=== PATIENT | female | born 1955 | race Caucasian/White ===

== ENCOUNTER → 2018-08-03 | Outpatient (CLI) | payer OTHER ==
[~2018-08-03] MED LIST: [UNRECOGNIZED DRUG - REMARK]
== END ==
LOC: SURG 10:24
PROVIDERS: ATTEND Anesthesiology Pain Medicine
DX: M25.551 Pain in right hip (principal); M25.552 Pain in left hip; E66.9 Obesity, unspecified; F11.90 Opioid use, unspecified, uncomplicated; G89.4 Chronic pain syndrome; I10 Essential (primary) hypertension; E11.9 Type 2 diabetes mellitus without complications; Z79.899 Other long term (current) drug therapy
CPT/HCPCS: 99214

== ENCOUNTER → 2018-10-05 | Outpatient (CLI) | payer OTHER ==
[~2018-10-05] MED LIST changes: +0.9 % SODIUM CHLORIDE 10 ML VIAL ONE; +LIDOCAINE 1% PF 30 ML VIAL. ONE; +MIDAZOLAM HCL PF 2 MG/2 ML VIAL. ONE; +methylPREDNISolone ACETATE 80 MG/ML VIAL. ONE
== END | disposition home or self-care (01) ==
LOC: SURG 08:17
PROVIDERS: ATTEND Anesthesiology Pain Medicine
DX: M54.16 Radiculopathy, lumbar region (principal); E11.9 Type 2 diabetes mellitus without complications; J30.2 Other seasonal allergic rhinitis; G47.30 Sleep apnea, unspecified; I49.9 Cardiac arrhythmia, unspecified; Z95.5 Presence of coronary angioplasty implant and graft; Z79.82 Long term (current) use of aspirin; Z79.899 Other long term (current) drug therapy; Z79.84 Long term (current) use of oral hypoglycemic drugs
CPT/HCPCS: 62323; 82947; J1040; J2001; J2250; J3010; 99152

== ENCOUNTER → 2018-11-09 | Outpatient (CLI) | payer OTHER ==
[~2018-11-09] MED LIST changes: +IOHEXOL 300 MG/ML 50 ML VIAL. ONE
== END | disposition home or self-care (01) ==
LOC: SURG 11:29
PROVIDERS: ATTEND Anesthesiology Pain Medicine
DX: M47.26 Other spondylosis with radiculopathy, lumbar region (principal); I10 Essential (primary) hypertension; E11.9 Type 2 diabetes mellitus without complications; Z79.899 Other long term (current) drug therapy; Z79.01 Long term (current) use of anticoagulants; Z79.84 Long term (current) use of oral hypoglycemic drugs; Z79.82 Long term (current) use of aspirin; G47.30 Sleep apnea, unspecified; F17.210 Nicotine dependence, cigarettes, uncomplicated; Z72.89 Other problems related to lifestyle; I25.2 Old myocardial infarction; Z95.1 Presence of aortocoronary bypass graft; K21.9 Gastro-esophageal reflux disease without esophagitis; Z95.5 Presence of coronary angioplasty implant and graft; Z98.890 Other specified postprocedural states
CPT/HCPCS: 62323; 82947; 99152; J1040; J2001; J2250; Q9967; J3010

== ENCOUNTER 2021-12-09 15:28 | Emergency (ER) | payer MEDICARE, OTHER ==
[~2021-12-09] VITALS: Ht 182.9 cm; Wt 143.1 kg
[~2021-12-09 15:28] MED LIST changes: -0.9 % SODIUM CHLORIDE 10 ML VIAL ONE; -IOHEXOL 300 MG/ML 50 ML VIAL. ONE; -LIDOCAINE 1% PF 30 ML VIAL. ONE; -MIDAZOLAM HCL PF 2 MG/2 ML VIAL. ONE; -methylPREDNISolone ACETATE 80 MG/ML VIAL. ONE
[2021-12-09] MEDS ORDERED: tiZANidine 4 MG TABLET. PO ONE (16:15)
[2021-12-09] MEDS ORDERED: TIZA4TAB8 PO (16:17)
--- NOTE | 2021-12-09 16:17 | PHYS DOC ---
Past History Past Medical History: Angina, Depression, Heart Disease, Hypertension, VA, Other Additional Past Medical Histor: mitral valve prolapse; chronic back pain; obese; irregular heart rythym Past Surgical History: Other Additional Past Surgical Histo: bunionectomy Smoking: Less than 1pk/day Alcohol Use: None Drug Use: None General Adult EDM: Chief Complaint: LOWER EXT PAIN HPI: HPI: Patient is a 66-year-old female that presents today with right hip right leg pain. Patient states that she laid down around 130 today because her right leg was bothering her, and she called her primary care doctor's office after she woke up today and was concerned with a blood clot. Patient has a past medical history of lower back pain for which she sees a pain management physician and is currently having treatment with epidural steroid injections for her back pain, she also takes Percocet tens and Flexeril for her pain. Patient is also currently having a work-up with cardiology at [facility] for mitral valve prolapse, she is currently on Eliquis 5 mg twice daily for this as well. Patient denies trauma or fall. Patient states she was supposed to be seen yesterday at her pain management doctor and canceled the appointment due to her having a CALIN tomorrow, she was concerned that she would contract Covid and would not have a negative Covid test. Patient states her last MRI was in 2018, she was instructed to lose weight, stop smoking, and get her hemoglobin A1c below 7 before they would do any treatment of her back, she has not lost weight which has keeping her from having any surgery. Review of Systems: Review of Systems: Constitutional: Denies fever or chills Eyes: Denies change in visual acuity HENT: Denies nasal congestion or sore throat Respiratory: Denies cough or shortness of breath Cardiovascular: Denies chest pain or edema GI: Denies abdominal pain, nausea, vomiting, bloody stools or diarrhea : Denies dysuria Musculoskeletal: Low back right hip right leg pain Integument: Denies rash Neurologic: Denies headache, focal weakness or sensory changes Endocrine: Denies polyuria or polydipsia Lymphatic: Denies swollen glands Psychiatric: Denies depression or anxiety Current Medications: Current Meds: Current Medications Medications (Trade) Dose Ordered Sig/Rd Start Time Stop Time Status Last Admin Dose Admin Tizanidine HCl (Zanaflex) 4 mg 1X ONCE 12/09/21 16:15 12/09/21 16:16 UNV Allergies: Allergies: Allergies Coded Allergies Type Severity Reaction Last Updated Verified No Known Drug Allergies 10/18/13 No Physical Exam: PE: Constitutional: Well developed, well nourished, no acute distress, non-toxic appearance. [] HENT: Normocephalic, atraumatic, bilateral external ears normal, oropharynx moist, no oral exudates, nose normal. [] Eyes: PERRLA, EOMI, conjunctiva normal, no discharge. [] Neck: Normal range of motion, no tenderness, supple, no stridor. [] Cardiovascular:Heart rate regular rhythm, no murmur [] Lungs & Thorax: Bilateral breath sounds clear to auscultation [] Abdomen: Bowel sounds normal, soft, no tenderness, no masses, no pulsatile masses. [] Skin: Warm, dry, no erythema, no rash. [] Back: Patient has tenderness over the right hip right back area she has a positive straight leg raise with radiculopathy pain. Extremities: Right leg no swelling no tenderness noted negative Homans' sign, bilateral pedal pulses in the lower extremities are 2+, Neurologic: Alert and oriented X 3, normal motor function, normal sensory function, no focal deficits noted. [] Psychologic: Affect normal, judgement normal, mood normal. [] Current Patient Data: Vital Signs: Vital Signs Date Time Temp Pulse Resp B/P (MAP) Pulse Ox O2 Delivery O2 Flow Rate FiO2 12/09/21 15:38 98.8 98 16 123/75 (91) 100 Room Air EKG: EKG: [] Radiology/Procedures: Radiology/Procedures: [] Heart Score: C/O Chest Pain: N/A Risk Factors: Risk Factors: DM, Current or recent (<one month) smoker, HTN, HLP, family history of CAD, obesity. Risk Scores: Score 0 - 3: 2.5% MACE over next 6 weeks - Discharge Home Score 4 - 6: 20.3% MACE over next 6 weeks - Admit for Clinical Observation Score 7 - 10: 72.7% MACE over next 6 weeks - Early Invasive Strategies Course & Med Decision Making: Course & Med Decision Making Pertinent Labs and Imaging studies reviewed. (See chart for details) Talk to patient at length about the pain that she is having and the fact that I believe it is radiculopathy type pain, she states after thinking about it this is very similar to the pain that she has had in the past with in relation to her low back pain. With patient having a pain management physician that writes her opioids on a monthly basis, I cannot write for opioids at this time, I did give her a Zanaflex here in the emergency department, and will write her prescription for Zanaflex for muscle relaxant but I did encourage her to call her pain management physician for further management of her low back pain and radiculopathy pain. Patient verbalizes understanding of this is agreeable to [facility] plan of care. Dragon Disclaimer: Dragon Disclaimer: This electronic medical record was generated, in whole or in part, using a voice recognition dictation system. Departure Departure: Impression: Primary Impression: Acute exacerbation of chronic low back pain Disposition: HOME / SELF CARE / HOMELESS Condition: STABLE Referrals: JANNA OROZCO MD (PCP) Patient Instructions: Back Pain, Adult Additional Instructions: Zanaflex 4 mg every 8 hours as needed for muscle spasms in your low back Take your pain medications as prescribed by your pain management physician Call your pain management physician tomorrow to get further management of your low back pain. Scripts Tizanidine Hcl (ZANAFLEX) 4 Mg Tablet 4 MG PO PRN Q8HRS PRN for MUSCLE SPASMS, #20 TAB Prov: SHEREEN SHER APRN 12/09/21 SHEREEN SHER APRN Dec 09, 2021 16:17
[2021-12-09 16:29] VITALS: BP 105/66
== END 2021-12-09 16:35 | disposition home or self-care (01) ==
LOC: ER 15:28
DX: G89.29 Other chronic pain (principal); M54.50 Low back pain, unspecified; I11.9 Hypertensive heart disease without heart failure; I25.2 Old myocardial infarction; F17.200 Nicotine dependence, unspecified, uncomplicated; Z79.01 Long term (current) use of anticoagulants
CPT/HCPCS: 99283